=== PATIENT | male | born 1995 | race Caucasian/White ===

== ENCOUNTER 2024-02-12 02:55 | Emergency (ER) | payer MEDICAID ==
[~2024-02-12] VITALS: Ht 170.2 cm; Wt 76.0 kg
[2024-02-12 03:01] VITALS: O2SAT 100
[2024-02-12 03:37] VITALS: TEMP 98.4
[2024-02-12 03:38] VITALS: BP 126/70; PULSE 72; RESP 14
[2024-02-12] MEDS: KETOROLAC 15MG/ML VIAL IM ONE (03:38)
[2024-02-12] MEDS ORDERED: NAPR-1176 MT (04:18)
[2024-02-12] MEDS ORDERED: LIDO700A15 TP (04:18)
== END 2024-02-12 04:27 | disposition home or self-care (01) ==
LOC: ER 03:09
DX: K08.89 Other specified disorders of teeth and supporting structures (principal)
CPT/HCPCS: 99283; 96372; J1885